=== PATIENT | male | born 1955 | race Caucasian/White ===

== ENCOUNTER 2022-02-07 14:27 | Outpatient (CLI) | payer MEDICARE, BC ==
[~2022-02-07] VITALS: Ht 193 cm; Wt 100.0 kg
[~2022-02-07 14:27] MED LIST: ASPIRIN 81M81 MG/TA2 PO; CENTRUM SILVER1 CTB PO; LEVITRA10 MG PO; LIDEX GEL 15GM TOP; ZESTRIL 20MG TA20 MG PO
== END 2022-02-07 15:51 ==
LOC: EUO 14:27
DX: Z23 Encounter for immunization (principal)
CPT/HCPCS: M0222; Q0222